=== PATIENT | female | born 2000 | race Two or more races ===

== ENCOUNTER 2022-06-27 17:43 | Emergency (ER) | payer OTHER ==
[~2022-06-27] VITALS: Ht 165.1 cm; Wt 81.6 kg
[2022-06-27] MEDS ORDERED: SINGULAIR10 MG (18:00)
[2022-06-27] MEDS ORDERED: ATARAX25 MG (18:00)
[2022-06-27] MEDS ORDERED: ZYRTEC10 MG (18:00)
[2022-06-27] MEDS ORDERED: PEPCID AC20 MG (18:00)
== END 2022-06-27 19:14 | disposition home or self-care (01) ==
LOC: ER 17:43 → EMR PED 17:43
DX: S93.401A Sprain of unspecified ligament of right ankle, initial encounter (principal); X58.XXXA Exposure to other specified factors, initial encounter; Y93.9 Activity, unspecified; Y92.89 Other specified places as the place of occurrence of the external cause; Y99.9 Unspecified external cause status